=== PATIENT | male | born 1955 | race Caucasian/White ===

== ENCOUNTER → 2016-09-29 | Outpatient (CLI) | payer BC ==
[~2016-09-29] MED LIST: COMPAZINE10 MG PO; [UNRECOGNIZED DRUG - OTHER] PO
== END | disposition disaster alternative care site (69) ==
LOC: GRAD 11:31
DX: C15.5 Malignant neoplasm of lower third of esophagus (principal); R63.4 Abnormal weight loss; D69.59 Other secondary thrombocytopenia; R91.1 Solitary pulmonary nodule; K80.20 Calculus of gallbladder without cholecystitis without obstruction; K57.30 Diverticulosis of large intestine without perforation or abscess without bleeding
CPT/HCPCS: Q9967

== ENCOUNTER → 2016-10-13 | Outpatient (CLI) | payer BC | END | disposition disaster alternative care site (69) | LOC: GKIC 11:04 | DX: C15.5 Malignant neoplasm of lower third of esophagus (principal); R91.1 Solitary pulmonary nodule | CPT/HCPCS: A9552 ==

== ENCOUNTER 2016-10-20 11:52 | Observation (INO) | payer BC ==
[~2016-10-20] VITALS: Ht 175.3 cm; Wt 69.0 kg
--- NOTE | ~2016-10-20 | HP ---
PATIENT'S NAME: [facility] AGE: 60 Y [address] ROOM: [place] [address] LOCATION: [facility] [place] ADMIT DATE: 10/20/2016 History & Physical DISCHARGE DATE: FAMILY PHYSICIAN: Josiah Boyle MD ATTENDING PHYSICIAN: KARLA SHAH V DATE OF SERVICE: CHIEF COMPLAINT: Observation admission. HISTORY OF PRESENT ILLNESS: The patient is a 60-year-old male with past medical history as below, who has undergone a CT-guided biopsy of a lung nodule today. The biopsy was complicated by persistent small pneumothorax and an admission for observation was requested. The patient reports that he has been entirely asymptomatic and resting comfortably at the time my visit. He denies any fevers, chills, chest pain, nausea, vomiting, diarrhea, or shortness of breath. REVIEW OF SYSTEMS: All 10 systems have been reviewed and negative aside from pertinent positives mentioned above. PAST MEDICAL HISTORY: 1. Significant for history of esophageal cancer status post resection and chemotherapy. 2. History of coronary artery bypass graft in early . 3. Type 2 diabetes for which the patient is not taking any medications. PAST SURGICAL HISTORY: Significant for coronary artery bypass graft and esophagectomy. SOCIAL HISTORY: The patient was a smoker in the distant past. Denies any ongoing toxic habits. FAMILY HISTORY: Reviewed, is noncontributory due to known underlying etiology for his presentation. PHYSICAL EXAMINATION: VITAL SIGNS: Temperature 98.2, pulse 66, respirations are 20, blood pressure is 139/73, and saturating 96% on room air. GENERAL: Appears as a well-developed, well-nourished middle-aged male, in no acute distress. PATIENT'S NAME: TIFFANIE JORDAN [facility] AGE: 60 Y [address] ROOM: [address] [address] LOCATION: [facility] [place] ADMIT DATE: 10/20/2016 History & Physical DISCHARGE DATE: FAMILY PHYSICIAN: Josiah Boyle MD ATTENDING PHYSICIAN: KARLA SHAH V NEUROLOGICAL: Nonfocal. EYES: Pupils are equal and reactive to light. LYMPHATIC: Shows no cervical lymphadenopathy. ENDOCRINE: No thyromegaly. HEART: Reveals regular rate and rhythm without appreciable murmurs, gallops, or rubs. LUNGS: Reveals slightly diminished breath sounds at the left apex. GI: Abdomen is soft, nontender, nondistended. : No costovertebral angle tenderness. VASCULAR: 2+ pedal pulses. MUSCULOSKELETAL: Unremarkable. SKIN: Warm and dry. PSYCHIATRIC: Reveals appropriate mood, cognition, and affect. LABORATORY DATA: Studies available to me right now is 3 chest x-rays today showing a small intermittent left apical pneumothorax and an unremarkable basic metabolic profile as well as a CBC. ASSESSMENT AND PLAN: This is a 60-year-old male, who will be monitored overnight for a small post biopsy pneumothorax. We will repeat a chest x-ray in the morning and decide about further course of action. Additional management will depend on clinical course. Time dedicated to this patient's encounter is 15 minutes. MD JAIRON NARVAEZ/candis /[id number] D: [id number] T: [id number] HISTORY & PHYSICAL
[2016-10-20 13:12] LABS: BASOPHIL % 0.4 %; EOSINOPHIL # 0.2 K/uL (0.0-0.5); EOSINOPHIL % 3.7 %; HEMATOCRIT 36.2 % (37.0-53.0); HEMOGLOBIN 12.5 g/dL (12.0-17.0); IMMATURE GRANULOCYTE % 0.2 %; LYMPHOCYTE # 0.9 K/uL (0.8-4.0); LYMPHOCYTE % 17.4 %; MCH 29.1 pg (27.0-34.0); MCHC 34.5 gm/dL (32.0-36.5); MCV 84.2 fl (83.0-98.0); MONOCYTE # 0.4 K/uL (0.0-1.0); MONOCYTE % 7.2 %; MPV 10.5 fl (9.4-12.4); NEUTROPHIL # (ANC) 3.6 K/uL (1.4-9.0); NEUTROPHIL % 71.1 %; NRBC % 0 /100WBC (0-0.00); PLATELET COUNT 126 K/uL (150-450); RDW-CV 13.1 % (11.9-14.6); WBC 5.1 K/uL (4.0-11.0)
[2016-10-20 13:17] LABS: INR - (THERAPEUTIC) 1.08 (0.92-1.07); PROTIME 11.4 SECONDS (9.8-11.4)
[2016-10-20 13:32] LABS: ALBUMIN 3.7 gm/dL (3.5-5.0); ALK PHOS 78 IU/L (33-138); ALT 20 IU/L (12-78); ANION GAP 8.8 (10.0-19.0); AST 12 IU/L (10-40); BLOOD UREA NITROGEN 18 mg/dL (6-24); CALCIUM 8.5 mg/dL (8.5-10.5); CHLORIDE 111 mMol/L (96-110); CO2 26 mMol/L (22-32); CREATININE 0.8 mg/dL (0.6-1.3); ESTIMATED GFR (MDRD EQUATION) > 60; POTASSIUM 3.8 mMol/L (3.7-5.1); SODIUM 142 mMol/L (135-145); TOTAL BILIRUBIN 0.6 mg/dL (0.0-1.5); TOTAL PROTEIN 6.4 g/dL (6.0-8.4)
== END 2016-10-21 13:48 | disposition disaster alternative care site (69) ==
LOC: GRAD 11:52 → GMSU 19:22
PROVIDERS: Internal Medicine Hematology & Oncology; ADMIT Internal Medicine
DX: C34.32 Malignant neoplasm of lower lobe, left bronchus or lung (principal); J93.83 Other pneumothorax; R91.1 Solitary pulmonary nodule; E11.9 Type 2 diabetes mellitus without complications; F17.200 Nicotine dependence, unspecified, uncomplicated; Z85.01 Personal history of malignant neoplasm of esophagus; Z90.49 Acquired absence of other specified parts of digestive tract
CPT/HCPCS: G0378; J2250; J3010; J7030

== ENCOUNTER → 2017-01-21 | Outpatient (CLI) | payer BC | END | disposition disaster alternative care site (69) | LOC: GRAD 11:26 | DX: C15.5 Malignant neoplasm of lower third of esophagus (principal); D69.59 Other secondary thrombocytopenia; J98.4 Other disorders of lung; I70.90 Unspecified atherosclerosis; R63.4 Abnormal weight loss; Z98.890 Other specified postprocedural states | CPT/HCPCS: Q9967 ==